=== PATIENT | male | born 1975 | race African-American/Black ===

== ENCOUNTER 2019-01-01 06:10 | Emergency (ER) | payer OTHER ==
--- NOTE | 2019-01-01 06:29 | PDOC ---
History of Present Illness - General History Source: Patient Exam Limitations: No Limitations <RyanHelen - Last Filed: 01/01/19 06:45> <Maikel Carvalho - Last Filed: 01/01/19 07:14> - General Chief Complaint: Ear Problem Stated Complaint: EARACHE,SORE THROAT Time Seen by Provider: 01/01/19 06:26 Past History - Travel Traveled outside of the country in the last 30 days: No Close contact w/someone who was outside of country & ill: No - Past Medical History Anemia: No Asthma: No Cancer: No Cardiac Disorders: No CVA: No COPD: No CHF: No Dementia: No Diabetes: No GI Disorders: No Disorders: No HTN: No Hypercholesterolemia: No Liver Disease: No Seizures: No Thyroid Disease: No - Surgical History 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) - Suicide/Smoking/Psychosocial Hx Smoking History: Current every day smoker Have you smoked in the past 12 months: Yes Number of Cigarettes Smoked Daily: 5 Information on smoking cessation initiated: No 'Breaking Loose' booklet given: 10/24/15 Hx Alcohol Use: Yes (Social) Drug/Substance Use Hx: No Hx Substance Use Treatment: No <Helen Davis - Last Filed: 01/01/19 06:45> <Maikel Carvalho - Last Filed: 01/01/19 07:14> - Past Medical History Allergies/Adverse Reactions: Allergies Allergy/AdvReac Type Severity Reaction Status Date / Time No Known Drug Allergies Allergy Verified 10/25/15 08:41 Home Medications: Ambulatory Orders NK [No Known Home Medication] 01/01/19 Review of Systems - Review of Systems Able to Perform ROS?: Yes Is the patient limited [place]ian proficient: No Constitutional: Yes: Weight Stable. No: Chills, Diaphoresis, Fever, Loss of Appetite, Malaise, Weakness HEENTM: Yes: See HPI (eye discharge, congestion), Nose Congestion, Throat Pain. No: Blurred Vision, Double Vision, Ear Discharge, Hearing Loss, Throat Swelling, Difficulty Swallowing Respiratory: Yes: Cough, Productive cough (yellow sputum). No: Orthopnea, Shortness of Breath, Wheezing, Hemoptysis Cardiac (ROS): No: Chest Pain, Edema, Irregular Heart Rate, Lightheadedness, Palpitations, Syncope, Chest Tightness ABD/GI: No: Constipated, Diarrhea, Nausea, Poor Appetite, Poor Fluid Intake, Vomiting : No: Burning, Dysuria, Frequency, Pain, Urgency Musculoskeletal: No: Back Pain, Joint Pain, Muscle Pain, Muscle Weakness Integumentary: No: Rash Neurological: No: Headache Psychiatric: No: Sleep Pattern Change, Change in Appetite Endocrine: No: Increased Urine, Change in Weight Hematologic/Lymphatic: No: Anemia, Blood Clots, Easy Bleeding, Easy Bruising All Other Systems: Reviewed and Negative <Helen Davis - Last Filed: 01/01/19 06:45> *Physical Exam - Vital Signs Last Vital Signs Temp Pulse Resp BP Pulse Ox 98.5 F 78 19 158/114 H 97 01/01/19 06:24 01/01/19 06:24 01/01/19 06:24 01/01/19 06:24 01/01/19 06:24 - Physical Exam Comments: HTN 160/110, pt afebrile. Pt in NAD, normal body habitus. Pt alert and oriented x3. retinal surgeon generally intact, muscular strength and sensation intact. No midline spinal tenderness, step-offs, or crepitus. Head normocephalic, atraumatic. Eyes PERRLA, EOMI. No active discharge noted at this time. Oropharynx with mild erythema but without exudates, no LAD b/l. Dry nasal congestion with boggy turbinates. TMs clear without erythema or bulging. Hearing intact. Clear heart sounds, S1/S2, no JVD, b/l pedal edema, or heart murmur. Clear lung sounds, with mild wheezes at posterior bases. No crackles, or accessory muscle use. No abdominal or CVA tenderness to palpation, no rebound, no guarding. Abdomen soft, non-distended, and with normoactive bowel sounds. Skin without jaundice or rash. 01/01/19 06:48 <Helen Davis - Last Filed: 01/01/19 06:45> - Vital Signs Last Vital Signs Temp Pulse Resp BP Pulse Ox 98.5 F 78 19 158/114 H 97 01/01/19 06:24 01/01/19 06:24 01/01/19 06:24 01/01/19 06:24 01/01/19 06:24 <Maikel Carvalho - Last Filed: 01/01/19 07:14> ED Treatment Course - Medications Given in the ED: ED Medications Discontinued Medications Generic Name Dose Route Start Last Admin Trade Name Judson PRN Reason Stop Dose Admin Polymyxin/Trimethoprim Sulfate 1 drop 01/01/19 06:39 01/01/19 07:04 Polytrim Opthalmic Solution - OU 01/01/19 06:40 Not Given ONCE STA <Maikel Carvalho - Last Filed: 01/01/19 07:14> Medical Decision Making - Medical Decision Making Pt was seen at bedside, also will be seen by attending Dr. Carvalho. Pt presenting with 3 days of b/l eye discharge, productive cough, dry nasal congestion, and ear pressure. No significant findings on exam, but will send rapid strep test as pt has mild tonsillar erythema. Will provide polymyxin eye drops to treat potential bacterial conjunctivitis -- pt states "eyes stuck together" with yellow drainage. Ears clear without bulging. Pending rapid strep. 01/01/19 06:50 Pt refused polymyxin eye drops Pt extremely rude to staff, refused to wait for rapid strep test. Pt eloped from ER. 01/01/19 07:04 <RyanHelen - Last Filed: 01/01/19 06:45> *DC/Admit/Observation/Transfer - Discharge Dispostion Decision to Admit order: No <Helen Davis - Last Filed: 01/01/19 06:45> - Attestations Physician Attestion: 01/01/19 07:14 I have reviewed the plan as documented and agree with current plan as documented. Electronically co-signed by Maikel Carvalho MD <Maikel Carvalho - Last Filed: 01/01/19 07:14> Diagnosis at time of Disposition: Sore throat, Eye discharge - Discharge Dispostion Disposition: ELOPED Condition at time of disposition: Good - Referrals Referrals: Yayo Ozuna MD [Primary Care Provider] - - Patient Instructions - Post Discharge Activity
[2019-01-01 06:35] VITALS: BP 158/114; PULSE 78; TEMP 98.5; BMI 33.3
[2019-01-01] MEDS ORDERED: POLYMYXIN B SULFATE/TMP 10 ML OPHTHALMIC SOLUTION OU STA (06:39)
--- NOTE | 2019-01-01 06:47 | PDOC ---
Attending Attestation - Resident Resident Name: Helen Davis - HPI HPI: 01/01/19 06:46 43m cough, congestion, sore throat, ear pain, yellowish discharge and crusting in eyes bilaterally . - Physicial Exam PE: 01/01/19 06:46 agree with resident exam - Medical Decision Making 01/01/19 06:46 likely viral syndrome conjunctival discharge concerning for bacterial conjunctivits polymyxin GTT return precautions
== END 2019-01-01 07:13 | disposition left against medical advice (07) ==
LOC: JER 06:10
DX: J02.9 Acute pharyngitis, unspecified (principal); H10.33 Unspecified acute conjunctivitis, bilateral
CPT/HCPCS: 87070; 87880; 99282-25

== ENCOUNTER 2020-12-06 14:25 | Emergency (ER) | payer OTHER ==
[2020-12-06 14:49] VITALS: BP 134/87; PULSE 81; TEMP 97.9; BMI 36.4
== END 2020-12-06 15:47 | disposition home or self-care (01) ==
LOC: JERFT 14:25
DX: M67.431 Ganglion, right wrist (principal)
CPT/HCPCS: 99281-25

== ENCOUNTER 2022-12-25 17:17 | Emergency (ER) | payer OTHER ==
[2022-12-25 17:30] VITALS: BP 152/109; PULSE 62; RESP 18; TEMP 98.2; BMI 37.0
[2022-12-25] MEDS ORDERED: FLUORESCEIN NA 1 EA STRIP ONE (17:55)
[2022-12-25] MEDS ORDERED: TETRACAINE 0.5% OPHTH SOLN 2 ML BOTTLE ONE (17:55)
[2022-12-25] MEDS ORDERED: FLUORESCEIN NA 1 EA STRIP OU ONE (18:19)
[2022-12-25] MEDS ORDERED: TETRACAINE 0.5% HCL 0.6ML DROPPER.BOTTLE OU ONE (18:19)
== END 2022-12-25 18:32 | disposition home or self-care (01) ==
LOC: JER 17:17 → JERFT 17:17
DX: S05.01XA Injury of conjunctiva and corneal abrasion without foreign body, right eye, initial encounter (principal); H16.203 Unspecified keratoconjunctivitis, bilateral; H53.71 Glare sensitivity; W89.0XXA Exposure to welding light (arc), initial encounter
CPT/HCPCS: 99283-25

== ENCOUNTER 2023-03-01 22:12 | Emergency (ER) | payer OTHER ==
[2023-03-01 22:22] VITALS: BP 117/78; RESP 18; TEMP 98; BMI 35.9
[2023-03-01] MEDS ORDERED: FAMOTIDINE 20 MG/50 ML IVPB 50 ML IVPB ONE (22:50)
[2023-03-01] MEDS ORDERED: SODIUM CHLORIDE 1,000 ML IV STA (22:50)
[2023-03-01] MEDS ORDERED: ACETAMINOPHEN 1000 MG/100 ML BAG IVPB ONE (22:50)
[2023-03-01] MEDS ORDERED: MAG HYDROX/AL HYDROX/SIMETH 30 ML UNIT-DOSE CUP PO ONE (22:52)
[2023-03-01] MEDS ORDERED: FAMOTIDINE 20 MG/50 ML IVPB 20 MG/50 ML MG IVPB ONE (22:57)
[2023-03-01] MEDS ORDERED: MAG HYDROX/AL HYDROX/SIMETH 30 ML UNIT-DOSE CUP ONE (22:57)
[2023-03-01] MEDS ORDERED: ACETAMINOPHEN INJECTION 100 ML IVPB ONE (22:57)
[2023-03-01] MEDS ORDERED: FAMOTIDINE 20 MG TABLET PO ONE (23:28)
[2023-03-01] MEDS ORDERED: ACETAMINOPHEN 325 MG TABLET (FP) PO ONE (23:28)
[2023-03-01] MEDS ORDERED: FAMOTIDINE 20 MG TABLET ONE (23:36)
[2023-03-01] MEDS ORDERED: ACETAMINOPHEN 325 MG TABLET (FP) ONE (23:36)
[2023-03-01 23:55] LABS: PH,URINE 5.5 (5.0-8.0); URINE APPEARANCE CLEAR; URINE BILIRUBIN NEGATIVE (NEGATIVE); URINE COLOR YELLOW; URINE GLUCOSE (UA) NEGATIVE (NEGATIVE); URINE KETONE TRACE (NEGATIVE); URINE LEUK ESTERASE NEGATIVE (NEGATIVE); URINE NITRITE NEGATIVE (NEGATIVE); URINE PROTEIN NEGATIVE (NEGATIVE); URINE UROBILINOGEN 0.2 mg/dL (0.2-1.0)
[2023-03-01 23:56] LABS: BASO % 0.9 % (0-2.0); EOS % 1.1 % (0-4.5); HEMATOCRIT 45.3 % (35.4-49); HEMOGLOBIN 15.4 GM/dL (11.7-16.9); LYMPH % 38.8 % (8-40); MCH 28.4 pg (25.7-33.7); MCHC 34.1 g/dl (32.0-35.9); MEAN CELL VOLUME 83.2 fl (80-96); MEAN PLT VOLUME 6.6 fl (7.5-11.1); MONO % 6.3 % (3.8-10.2); NEUT % 52.9 % (42.8-82.8); PLATELET COUNT 262 10^3/uL (134-434); RBC 5.45 M/mm3 (4.00-5.60); RDW 13.8 % (11.9-15.9); WHITE BLOOD COUNT 6.3 K/mm3 (4.0-10.0)
[2023-03-02 00:24] LABS: ALBUMIN 3.6 g/dl (3.4-5.0); BLOOD UREA NITROGEN 16.3 mg/dL (7-18); CALCIUM 8.9 mg/dL (8.5-10.1)
[2023-03-02 00:27] LABS: CREATININE 1.2 mg/dL (0.55-1.3)
[2023-03-02 00:29] LABS: BILIRUBIN,TOTAL 0.4 mg/dL (0.2-1); TOT PROT 7.4 g/dl (6.4-8.2)
[2023-03-02] MEDS ORDERED: IBUPROFEN 600 MG TABLET (FP) PO ONE ×2 (01:23→01:47)
[2023-03-02 01:57] VITALS: PULSE 70
== END 2023-03-02 01:53 | disposition home or self-care (01) ==
LOC: JER 22:12
DX: R10.84 Generalized abdominal pain (principal); R10.12 Left upper quadrant pain; K40.90 Unilateral inguinal hernia, without obstruction or gangrene, not specified as recurrent
CPT/HCPCS: 36415; 71046-TC-FY; 74176-TC; 80053; 81003; 83690; 85025; 87086; 93005; 93010; 99285-25

== ENCOUNTER 2024-01-18 16:27 | Emergency (ER) | payer OTHER ==
[2024-01-18 16:39] VITALS: BP 158/103; PULSE 84; RESP 19; TEMP 98.2; BMI 37.2
[2024-01-18] MEDS ORDERED: LIDOCAINE 4% PATCH TP ONE (18:52)
[2024-01-18] MEDS ORDERED: ACETAMINOPHEN 500 MG TABLET (FP) ONE (18:53)
[2024-01-18 18:58] LABS: BASO % 0.7 % (0-2.0); EOS % 1.3 % (0-4.5); HEMATOCRIT 44.5 % (35.4-49); HEMOGLOBIN 15.2 GM/dL (11.7-16.9); LYMPH % 37.8 % (8-40); MCH 28.6 pg (25.7-33.7); MCHC 34.2 g/dl (32.0-35.9); MEAN CELL VOLUME 83.4 fl (80-96); MEAN PLT VOLUME 6.5 fl (7.5-11.1); MONO % 4.8 % (3.8-10.2); NEUT % 55.4 % (42.8-82.8); PLATELET COUNT 257 10^3/uL (134-434); RBC 5.34 M/mm3 (4.00-5.60)
[2024-01-18 19:14] LABS: POTASSIUM 4.3 mmol/L (3.5-5.1)
[2024-01-18 19:16] LABS: ALBUMIN 3.9 g/dl (3.4-5.0); CALCIUM 9.2 mg/dL (8.5-10.1)
[2024-01-18 19:17] LABS: BLOOD UREA NITROGEN 14.8 mg/dL (7-18)
[2024-01-18 19:20] LABS: CREATININE 1.3 mg/dL (0.55-1.3)
[2024-01-18 19:21] LABS: BILIRUBIN,TOTAL 0.3 mg/dL (0.2-1); TOT PROT 7.7 g/dl (6.4-8.2)
[2024-01-18 20:13] LABS: HIV INTERPRETATION NEGATIVE (NEGATIVE)
== END 2024-01-18 22:50 | disposition home or self-care (01) ==
LOC: JERFT 16:27 → JER 16:27 → JERFT 22:50
DX: M67.431 Ganglion, right wrist (principal); R07.89 Other chest pain; M79.621 Pain in right upper arm; R20.2 Paresthesia of skin; R20.0 Anesthesia of skin
CPT/HCPCS: 36415; 71046-TC-FY; 80053; 84484; 85025; 86803; 87389; 93005; 93010; 99285-25